=== PATIENT | female | born 1980 | race American Indian/Alaskan Native ===

== ENCOUNTER 2019-04-16 15:58 | Emergency (ER) | payer OTHER ==
[2019-04-16 16:39] VITALS: BP 128/82
--- NOTE | 2019-04-16 16:46 | Event Note ---
ED Screening Note Date of service: 04/16/19 Time: 16:45 ED Screening Note: 38 y/o female comes in for 4 day history of lower abd pain and dysuria. LMP January 2019. This initial assessment/diagnostic orders/clinical plan/treatment(s) is/are subject to change based on patients health status, clinical progression and re- assessment by fellow clinical providers in the ED. Further treatment and workup at subsequent clinical providers discretion. Patient/guardian urged not to elope from the ED as their condition may be serious if not clinically assessed and managed. Initial orders include:
[2019-04-16 17:22] LABS: Bacteria,Urine 1+ /HPF (Negative); Bilirubin,Urine NEG (Negative); Blood,Urine SM (Negative); Color,Urine Yellow (Yellow); Mucus,Urine 3+ /HPF
[2019-04-16] MEDS ORDERED: NACL 0.9% 1000 ML 1,000 ML IV ONE (18:10)
[2019-04-16] MEDS ORDERED: ZOFRAN IV ONE (18:10)
--- NOTE | 2019-04-16 18:28 | Emergency Department Report ---
ED Abdominal Pain HPI - General Chief Complaint: Abdominal Pain Stated Complaint: V/D ABD PAIN Time Seen by Provider: 04/16/19 16:42 Source: patient Mode of arrival: Ambulatory Limitations: No Limitations - History of Present Illness Initial Comments: pt is a 38 y/o female comes in for 4 day history of lower abd pain and dysuria. is 11 weeks G2, P2, A 9, LMP January 2019. does endorse abd cramping and nausea and vomiting. there is no fever no chills no vaginal bleeding. MD Complaint: abdominal pain Onset/Timin -: days(s) Location: suprapubic Radiation: suprapubic Migration to: no migration Severity: moderate Severity scale (0 -10): 4 Quality: cramping, other (dysuria ) Consistency: intermittent Improves With: nothing Worsens With: other (voiding ) Associated Symptoms: nausea, vomiting, dysuria. denies: diarrhea, fever, chills, constipation, hematemesis, hematochezia, melena, hematuria, anorexia, syncope - Related Data LMP Date: 02/06/19 Previous Rx's Medication Instructions Recorded Last Taken Type Acetaminophen [Acetaminophen TAB] 650 mg PO Q6HR PRN #30 tablet 04/16/19 Unknown Rx Nitrofurantoin [place]/M-Cryst 100 mg PO BID 7 Days #14 capsule 04/16/19 Unknown Rx [Macrobid CAP] Ondansetron [Zofran Odt] 4 mg PO Q8HR #12 tab.rapdis 04/16/19 Unknown Rx Allergies Allergy/AdvReac Type Severity Reaction Status Date / Time No Known Allergies Allergy Unverified 04/16/19 16:43 ED Review of Systems ROS: Stated complaint: V/D ABD PAIN Other details as noted in HPI Constitutional: denies: chills, fever Eyes: denies: eye pain, eye discharge, vision change ENT: denies: ear pain, throat pain Respiratory: denies: cough, shortness of breath, wheezing Cardiovascular: denies: chest pain, palpitations Endocrine: no symptoms reported Gastrointestinal: abdominal pain, nausea, vomiting. denies: diarrhea, constipation, hematemesis, melena, hematochezia Genitourinary: dysuria, frequency. denies: urgency, hematuria, discharge, abnormal menses, dyspareunia Musculoskeletal: denies: back pain, joint swelling, arthralgia Skin: denies: rash, lesions Neurological: denies: headache, weakness, paresthesias Psychiatric: denies: anxiety, depression Hematological/Lymphatic: denies: easy bleeding, easy bruising ED Past Medical Hx - Past Medical History Previous Medical History?: No - Surgical History Past Surgical History?: Yes Additional Surgical History: left lumpectomy. mass removed from cervix. - Social History Smoking Status: Never Smoker Substance Use Type: None - Medications Home Medications: Home Medications Medication Instructions Recorded Confirmed Last Taken Type Acetaminophen [Acetaminophen TAB] 650 mg PO Q6HR PRN #30 tablet 04/16/19 Unknown Rx Nitrofurantoin [place]/M-Cryst 100 mg PO BID 7 Days #14 capsule 04/16/19 Unknown Rx [Macrobid CAP] Ondansetron [Zofran Odt] 4 mg PO Q8HR #12 tab.rapdis 04/16/19 Unknown Rx ED Physical Exam - General Limitations: No Limitations General appearance: alert, in no apparent distress - Head Head exam: Present: atraumatic, normocephalic - Eye Eye exam: Present: normal appearance, PERRL, EOMI Pupils: Present: normal accommodation - ENT ENT exam: Present: mucous membranes moist - Neck Neck exam: Present: normal inspection, full ROM. Absent: tenderness, lymphadenopathy, thyromegaly - Respiratory Respiratory exam: Present: normal lung sounds bilaterally. Absent: respiratory distress, wheezes, stridor, chest wall tenderness - Cardiovascular Cardiovascular Exam: Present: regular rate, normal rhythm, normal heart sounds. Absent: systolic murmur, diastolic murmur, rubs, gallop - GI/Abdominal GI/Abdominal exam: Present: soft, normal bowel sounds. Absent: distended, tenderness, bruit, hernia - Rectal Rectal exam: Present: deferred - Extremities Exam Extremities exam: Present: normal inspection, full ROM, normal capillary refill. Absent: tenderness, pedal edema, joint swelling, calf tenderness - Back Exam Back exam: Present: normal inspection, full ROM, tenderness. Absent: CVA tenderness (R), CVA tenderness (L), muscle spasm, paraspinal tenderness, rash noted - Neurological Exam Neurological exam: Present: alert, oriented X3, CN II-XII intact, normal gait, reflexes normal. Absent: motor sensory deficit - Psychiatric Psychiatric exam: Present: normal affect, normal mood - Skin Skin exam: Present: warm, dry, intact, normal color. Absent: rash ED Course Vital Signs 04/16/19 04/16/19 16:36 18:10 Temperature 97.5 F L Pulse Rate 101 H Respiratory 18 17 Rate Blood Pressure 128/82 O2 Sat by Pulse 99 Oximetry ED Medical Decision Making - Lab Data Lab Results 04/16/19 04/16/19 Range/Units 16:56 17:01 HCG, Quant [id number] H (0-4) mIU/mL Urine Color Yellow (Yellow) Urine Turbidity Cloudy (Clear) Urine pH 6.0 (5.0-7.0) Ur Specific [place] 1.027 (1.003-1.030) Urine Protein 30 mg/dl (Negative) mg/dL Urine Glucose (UA) Neg (Negative) mg/dL Urine Ketones Neg (Negative) mg/dL Urine Blood Sm (Negative) Urine Nitrite Neg (Negative) Urine Bilirubin Neg (Negative) Urine Urobilinogen 2.0 (<2.0) mg/dL Ur Leukocyte Esterase Lg (Negative) Urine WBC (Auto) 13.0 H (0.0-6.0) /HPF Urine RBC (Auto) 6.0 (0.0-6.0) /HPF U Epithel Cells (Auto) 42.0 H (0-13.0) /HPF Urine Bacteria (Auto) 1+ (Negative) /HPF Urine Mucus 3+ /HPF - Radiology Data Radiology results: report reviewed, image reviewed Ordering Physician: ANNA BARBOZA NP Date of Service: 04/16/19 Procedure(s): US OB transvaginal Accession Number(s): [id number] cc: ANNA BARBOZA NP ULTRASOUND OBSTETRIC INDICATION / CLINICAL INFORMATION: abd pain pos preg. TECHNIQUE: Transabdominal and Transvaginal. COMPARISON: None available. FINDINGS: GESTATIONAL SAC: Well-defined oval shape and intrauterine in location. YOLK SAC: No significant abnormality. EMBRYO/FETUS: No significant abnormality. - [place]-Rump Length = 4.6 cm = 11 weeks, 3 day(s). - Heart Rate, beats per minute (if present) = 170 ADNEXA: Right ovary appears within normal limits without cyst or mass measuring 2.2 x 4.4 x 2.5 cm. Left ovary appears within normal limits measuring 2.8 x 4.4 x 2.5 cm. FREE FLUID: None. ADDITIONAL FINDINGS: None. IMPRESSION: 1. Single, living intrauterine with estimated sonographic age of 11 weeks, 3 day(s). Signer Name: Elbert Gomes MD Signed: 04/16/2019 7:28 PM Workstation Name: [id number] Signer Name: Elbert Gomes MD Signed: 04/16/2019 7:29 PM Workstation Name: [id number] Transcribed By: TL Dictated By: Elbert Gomes MD Electronically Authenticated By: Elbert Gomes MD Signed Date/Time: 04/16/191928 DD/ 28 TD/TT: - Medical Decision Making US OB Single IUP, 11 weeks and 3 dys , FHR: 170 bpm, ua: pos leuk, wbc, plan, macrobid , tylenol follow up with OBGYN in 2-3 days return to ed if symptoms worsen. Critical care attestation.: If time is entered above; I have spent that time in minutes in the direct care of this critically ill patient, excluding procedure time. ED Disposition Clinical Impression: Abdominal pain during intrauterine UTI (urinary tract infection) during Qualifiers: Trimester: first trimester Qualified Code(s): O23.41 - Unspecified infection of urinary tract in , first trimester Disposition: - TO HOME OR SELFCARE Is pt being admited?: No Does the pt Need Aspirin: No Condition: Stable Instructions: Abdominal Pain (ED), Urinary Tract Infection in Women (ED), (ED) Prescriptions: Acetaminophen [Acetaminophen TAB] 650 mg PO Q6HR PRN #30 tablet PRN Reason: Pain Nitrofurantoin [place]/M-Cryst [Macrobid CAP] 100 mg PO BID 7 Days #14 capsule Ondansetron [Zofran Odt] 4 mg PO Q8HR #12 tab.rapdis Referrals: LISS MALLOY MD [Primary Care Provider] - 3-5 Days RONNI DINERO MD [Staff Physician] - 3-5 Days Forms: Work/School Release Form(ED) Time of Disposition: 20:25
--- NOTE | 2019-04-16 19:33 | Ultrasound Report ---
ULTRASOUND OBSTETRIC INDICATION / CLINICAL INFORMATION: abd pain pos preg. TECHNIQUE: Transabdominal and Transvaginal. COMPARISON: None available. FINDINGS: GESTATIONAL SAC: Well-defined oval shape and intrauterine in location. YOLK SAC: No significant abnormality. EMBRYO/FETUS: No significant abnormality. - [place]-Rump Length = 4.6 cm = 11 weeks, 3 day(s). - Heart Rate, beats per minute (if present) = 170 ADNEXA: Right ovary appears within normal limits without cyst or mass measuring 2.2 x 4.4 x 2.5 cm. Left ovary appears within normal limits measuring 2.8 x 4.4 x 2.5 cm. FREE FLUID: None. ADDITIONAL FINDINGS: None. IMPRESSION: 1. Single, living intrauterine with estimated sonographic age of 11 weeks, 3 day(s). Signer Name: Elbert Gomes MD Signed: 04/16/2019 7:28 PM Workstation Name: [id number]
--- NOTE | 2019-04-16 19:34 | Ultrasound Report ---
ULTRASOUND OBSTETRIC INDICATION / CLINICAL INFORMATION: abd pain pos preg. TECHNIQUE: Transabdominal and Transvaginal. COMPARISON: None available. FINDINGS: GESTATIONAL SAC: Well-defined oval shape and intrauterine in location. YOLK SAC: No significant abnormality. EMBRYO/FETUS: No significant abnormality. - [place]-Rump Length = 4.6 cm = 11 weeks, 3 day(s). - Heart Rate, beats per minute (if present) = 170 ADNEXA: Right ovary appears within normal limits without cyst or mass measuring 2.2 x 4.4 x 2.5 cm. Left ovary appears within normal limits measuring 2.8 x 4.4 x 2.5 cm. FREE FLUID: None. ADDITIONAL FINDINGS: None. IMPRESSION: 1. Single, living intrauterine with estimated sonographic age of 11 weeks, 3 day(s). Signer Name: Elbert Gomes MD Signed: 04/16/2019 7:28 PM Workstation Name: [id number] Signer Name: Elbert Gomes MD Signed: 04/16/2019 7:29 PM Workstation Name: [id number]
== END 2019-04-16 20:35 | disposition home or self-care (01) ==
LOC: ED 15:58
DX: O23.41 Unspecified infection of urinary tract in pregnancy, first trimester (principal); Z98.890 Other specified postprocedural states; Z79.899 Other long term (current) drug therapy; Z3A.11 11 weeks gestation of pregnancy
CPT/HCPCS: 36415; 76801; 76817; 81001; 84702; 87086; 96374; 99284; J2405; J7030

== ENCOUNTER 2020-11-22 12:18 | Emergency (ER) | payer MEDICAID ==
[2020-11-22 12:51] VITALS: BP 113/74
[2020-11-22] MEDS ORDERED: IBUPROFEN 800 MG TAB PO ONE (13:03)
--- NOTE | 2020-11-22 13:03 | Emergency Department Report ---
ED General Adult HPI - General Chief complaint: Extremity Injury, Lower Stated complaint: LEFT ANKLE INJURY Time Seen by Provider: 11/22/20 12:47 Source: patient Mode of arrival: Ambulatory Limitations: No Limitations - History of Present Illness Initial comments: 39-year-old -Portuguese female patient presents with complaints of left ankle pain and swelling after a fall injury 2 days ago. She rates her pain as a 9/10 in severity and denies trying any OTC medicine for her symptoms. She admits to swelling, but denies any numbness/tingling, bruising, or decreased range of motion. Pain worsens with movement and with ambulation. Severity scale (0 -10): 10 - Related Data Previous Rx's Medication Instructions Recorded Last Taken Type Acetaminophen [Acetaminophen TAB] 650 mg PO Q6HR PRN #30 tablet 04/16/19 Unknown Rx Nitrofurantoin [place]/M-Cryst 100 mg PO BID 7 Days #14 capsule 04/16/19 Unknown Rx [Macrobid CAP] Ondansetron [Zofran Odt] 4 mg PO Q8HR #12 tab.rapdis 04/16/19 Unknown Rx Acetaminophen/Codeine [Tylenol 1 tab PO Q8H PRN #12 tab 11/22/20 Unknown Rx /Codeine # 3 tab] Naproxen 500 mg PO BID PRN #20 tablet 11/22/20 Unknown Rx Allergies Allergy/AdvReac Type Severity Reaction Status Date / Time No Known Allergies Allergy Unverified 04/16/19 16:43 ED Review of Systems ROS: Stated complaint: LEFT ANKLE INJURY Other details as noted in HPI Constitutional: denies: weakness Musculoskeletal: joint swelling, arthralgia Skin: denies: change in color Neurological: denies: numbness, paresthesias ED Past Medical Hx - Surgical History Additional Surgical History: left lumpectomy. mass removed from cervix. - Social History Smoking Status: Never Smoker Substance Use Type: None - Medications Home Medications: Home Medications Medication Instructions Recorded Confirmed Last Taken Type Acetaminophen [Acetaminophen TAB] 650 mg PO Q6HR PRN #30 tablet 04/16/19 Unknown Rx Nitrofurantoin [place]/M-Cryst 100 mg PO BID 7 Days #14 capsule 04/16/19 Unknown Rx [Macrobid CAP] Ondansetron [Zofran Odt] 4 mg PO Q8HR #12 tab.rapdis 04/16/19 Unknown Rx Acetaminophen/Codeine [Tylenol 1 tab PO Q8H PRN #12 tab 11/22/20 Unknown Rx /Codeine # 3 tab] Naproxen 500 mg PO BID PRN #20 tablet 11/22/20 Unknown Rx ED Physical Exam - General Limitations: No Limitations General appearance: alert, in no apparent distress - Eye Eye exam: Absent: scleral icterus - Respiratory Respiratory exam: Absent: respiratory distress - Cardiovascular Cardiovascular Exam: Present: regular rate - Extremities Exam Extremities exam: Present: tenderness (Lateral ankle and distal fibular tenderness to palpation noted with mild swelling; no bruising noted; pedal pulses normal; normal sensation and color noted) - Back Exam Back exam: Present: full ROM - Neurological Exam Neurological exam: Present: alert, oriented X3 - Psychiatric Psychiatric exam: Present: normal affect, normal mood - Skin Skin exam: Present: warm, dry, intact, normal color. Absent: rash ED Course Vital Signs 11/22/20 11/22/20 11/22/20 12:50 14:30 14:31 Temperature 98.9 F Pulse Rate 86 Respiratory 16 18 18 Rate Blood Pressure 113/74 [Right] O2 Sat by Pulse 100 Oximetry - Procedure Description Procedures done: Walt splint applied. Patient tolerated procedure well. She denies any numbness or pain with the splint. Normal sensation and perfusion of the toes noted post splint application ED Medical Decision Making - Medical Decision Making 39-year-old -Portuguese female patient presents with complaints of left ankle pain and swelling after a fall injury 2 days ago. She rates her pain as a 9/10 in severity and denies trying any OTC medicine for her symptoms. She admits to swelling, but denies any numbness/tingling, bruising, or decreased range of motion. Pain worsens with movement and with ambulation. Mildly displaced distal fibular and tibial fracture noted on x-ray. Patient placed in [place] splint and informed to follow-up with seed specialist within 2 to 3 days. Discussed signs and symptoms that should prompt immediate return to the emergency department in detail with patient who verbalized und erstanding. She is well-appearing and stable for discharge home. Critical care attestation.: If time is entered above; I have spent that time in minutes in the direct care o f this critically ill patient, excluding procedure time. ED Disposition Clinical Impression: Fracture of distal fibula Qualifiers: Encounter type: initial encounter Fracture type: closed Fracture morphology: other fracture Laterality: left Qualified Code(s): S82.832A - Other fracture of upper and lower end of left fibula, initial encounter for closed fracture Disposition: TO HOME OR SELFCARE Is pt being admited?: No Condition: Stable Instructions: Tibial and Fibular Fractures, Cast or Splint Care, Adult Prescriptions: Naproxen 500 mg PO BID PRN #20 tablet PRN Reason: pain Acetaminophen/Codeine [Tylenol /Codeine # 3 tab] 1 tab PO Q8H PRN #12 tab PRN Reason: Pain , Severe (7-10) Referrals: [facility] [Provider Group] - 3-5 Days
--- NOTE | 2020-11-22 13:52 | XRay Report ---
XR ankle 3+V LT INDICATION / CLINICAL INFORMATION: distal fibular pain swelling after fall injury. COMPARISON: None available. FINDINGS/IMPRESSION: Bones/joints: There is an acute minimally displaced oblique fracture of the distal fibula near the sy ndesmosis. Additional mildly displaced posterior malleolar fracture of the distal tibia is also prese nt. Minimal asymmetric widening of the medial ankle gutter may be related to projection. Talar dome i s intact. No additional fracture. Soft tissues: There is soft tissue swelling about the ankle, greatest laterally. Additional findings: None Signer Name: Andrea Fuentes MD Signed: 11/22/2020 1:48 PM Workstation Name: [id number]
[2020-11-22] MEDS ORDERED: HYDROcodone/ACETAMINOPHEN 5-325 MG TAB PO ONE (14:00)
== END 2020-11-22 15:15 | disposition home or self-care (01) ==
LOC: ED 12:18
DX: S82.832A Other fracture of upper and lower end of left fibula, initial encounter for closed fracture (principal); Z98.890 Other specified postprocedural states; Z79.899 Other long term (current) drug therapy; W19.XXXA Unspecified fall, initial encounter; Y93.89 Activity, other specified; Y92.89 Other specified places as the place of occurrence of the external cause; Y99.8 Other external cause status

== ENCOUNTER 2022-05-17 23:28 | Emergency (ER) | payer MEDICAID | END 2022-05-17 23:40 | disposition left against medical advice (07) | LOC: ED 23:28 | DX: T19.2XXA Foreign body in vulva and vagina, initial encounter (principal); Z53.21 Procedure and treatment not carried out due to patient leaving prior to being seen by health care provider ==